=== PATIENT | female | born 1965 | race African-American/Black ===

== ENCOUNTER → 2016-03-20 | Day surgery (SDC) | payer MEDICARE, OTHER ==
[~2016-03-20] MED LIST: CALC0.25 PO; CALC667C PO; CEPH-460 PO; CETI5CHW CHEW; CIPR250T52 PO; CIPR500T2 PO; ERGO1CAP10 PO; FLUT1SPR5 EACH NARE; HYDR12.56 PO; KETOC2%T TOPICAL; LACTATED RINGER'S 1000 ML INJ 1,000 ML ONE; LEVO112T2 PO; LEVO75TA3 PO; LEVO88TA2 PO; PARO1TAB72 PO; PARO20TA2 PO; PAXI10TA2 PO; PROPOFOL 100 MG/10 ML INJ IV ONE; SODIUM CHLOR 0.9% 1000 ML BAG IV ONE; VALS1TAB70 PO
== END | disposition home or self-care (01) ==
LOC: ESDC 07:54
PROVIDERS: ATTEND Internal Medicine Gastroenterology
DX: K29.70 Gastritis, unspecified, without bleeding (principal); K29.80 Duodenitis without bleeding; K31.89 Other diseases of stomach and duodenum; K57.90 Diverticulosis of intestine, part unspecified, without perforation or abscess without bleeding
CPT/HCPCS: 00740; 00810; 43239; 45378; 88305; 88312; J3010; J7030; J7120

== ENCOUNTER 2016-07-01 17:47 | Emergency (ER) | payer MEDICARE, OTHER ==
[~2016-07-01] VITALS: Ht 170.2 cm; Wt 64.0 kg
[~2016-07-01 17:47] MED LIST changes: -CALC667C PO; -CEPH-460 PO; -CIPR250T52 PO; -CIPR500T2 PO; -FLUT1SPR5 EACH NARE; -LACTATED RINGER'S 1000 ML INJ 1,000 ML ONE; -LEVO112T2 PO; -LEVO88TA2 PO; -PARO1TAB72 PO; -PAXI10TA2 PO; -PROPOFOL 100 MG/10 ML INJ IV ONE; -SODIUM CHLOR 0.9% 1000 ML BAG IV ONE
[2016-07-01 17:48] VITALS: BP 127/69; PULSE 81; RESP 16; TEMP 98.8; O2SAT 99
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
[2016-07-01 18:28] LABS: BASOPHIL # 0.1 TH/MM3 (0-0.2); BASOPHIL % 0.7 % (0.0-2.0); EOSINOPHIL # 0.2 TH/MM3 (0-0.4); EOSINOPHIL % 2.1 % (0.0-4.0); HEMATOCRIT 38.4 % (35.0-46.0); HEMO FLAGS DIFF FINAL; LYMPH % 19.1 % (9.0-44.0); LYMPHOCYTE # 1.7 TH/MM3 (1.0-4.8); MEAN CELL VOLUME 80.5 FL (80.0-100.0); MEAN CORPUSCULAR HEMOGLOBIN 25.4 PG (27.0-34.0); MEAN CORPUSCULAR HGB CONC 31.5 % (32.0-36.0); MONO % 9.2 % (0.0-8.0); NEUT % 68.9 % (16.0-70.0); PLATELET COUNT 189 TH/MM3 (150-450); RED BLOOD COUNT 4.77 MIL/MM3 (4.00-5.30); RED CELL DISTRIBUTION WIDTH 13.7 % (11.6-17.2); WHITE BLOOD COUNT 8.7 TH/MM3 (4.0-11.0)
[2016-07-01 18:38] LABS: BACTERIA, URINE FEW /hpf; BLOOD, URINE LARGE (NEG); COMMENT (UR) CULTURE INDICATED; CULTURE IF INDICATED CULTURE INDICATED; GLUCOSE,URINE NEG (NEG); KETONE, URINE NEG (NEG); MUCUS URINE FEW /lpf (OCC); NITRITE,URINE NEG (NEG); SQUAMOUS EPITHELIAL CELL URINE 11 /hpf (0-5); URINE COLOR LIGHT-RED (YELLW/STRAW)
[2016-07-01 18:44] LABS: ANION GAP 12 MEQ/L (5-15); AST (GOT) 7 U/L (15-37); BICARBONATE 23.8 MEQ/L (21.0-32.0); BLOOD UREA NITROGEN 52 MG/DL (7-18); CHLORIDE 98 MEQ/L (98-107); GLOMERULAR FILTRATION RATE 6 ML/MIN (>89); POTASSIUM 3.7 MEQ/L (3.5-5.1); SODIUM (NA) 134 MEQ/L (136-145)
[2016-07-01 18:47] LABS: ALKALINE PHOSPHATASE 63 U/L (45-117); ALT (GPT) 21 U/L (10-53); TOTAL BILIRUBIN ADULT 0.2 MG/DL (0.2-1.0)
[2016-07-01] MEDS ORDERED: CALC0.25 PO (19:13)
[2016-07-01] MEDS ORDERED: CALC667C PO (19:13)
[2016-07-01] MEDS ORDERED: PARO1TAB72 PO (19:13)
[2016-07-01 19:14] VITALS: BP 132/77; PULSE 76; RESP 18; O2SAT 98
--- NOTE | 2016-07-01 19:20 | RADRPT ---
EXAM DATE/TIME: 07/01/2016 19:00 CORRECTION Corrected on: July 01, 2016; [facility] COMPARISON: CT ABDOMEN & PELVIS W/O CONTRAST, September 06, 2015, 18:06. INDICATIONS : Suprapubic pain and hematuria X 2 days. ORAL CONTRAST: No oral contrast ingested. RADIATION DOSE: 9.96 CTDIvol (mGy) MEDICAL HISTORY : Hypertension. Polycystic kidney disease SURGICAL HISTORY : Hysterectomy. Peritoneal dialysis catheter ENCOUNTER: Initial ACUITY: 2 days PAIN SCALE: 6/10 LOCATION: Abdomen/pelvis TECHNIQUE: Volumetric scanning of the abdomen and pelvis was performed. Using automated exposure control and adjustment of the mA and/or kV according to patient size, radiation dose was kept as low as reasonably achievable to obtain optimal diagnostic quality images. FINDINGS: Lung bases are clear. The patient has polycystic kidney disease with very large kidneys bilaterally. There are no hepatic cysts or pancreatic cysts evident. Some of these cysts are spontaneously dens e suggesting hemorrhage. Patient has a peritoneal dialysis catheter in place. Bladder appears grossly unremarkable. CONCLUSION: 1. Polycystic kidney disease. 2. Peritoneal dialysis catheter in place. 3. Etiology for the hematuria is not apparent. 4. Patient does have scattered apparent hemorrhagic cysts. There are small tiny areas of calcificat ion evident as well. Tyrone Guillen MD FACR on July 01, 2016 at 19:14 Board Certified Radiologist. This report was verified electronically. Tyrone Guillen MD FACR on July 01, 2016 at 21:25 Board Certified Radiologist. This report was verified electronically.
[2016-07-01 19:41] LABS: APTT (PATIENT) 28.5 SEC (24.3-30.1); INTERNATIONAL NORMALIZED RATIO 0.9 RATIO; PROTHROMBIN TIME - PATIENT 10.4 SEC (9.8-11.6)
[2016-07-01] MEDS ORDERED: CIPR500T2 PO (19:44)
[2016-07-05] MEDS ORDERED: CEPH-460 PO (12:19)
[2016-07-07] MEDS ORDERED: PARO1TAB72 PO (11:15)
[2016-07-18] MEDS ORDERED: CIPR250T52 PO (08:00)
== END 2016-07-01 19:58 | disposition home or self-care (01) ==
LOC: NEPD 17:47
DX: R58 Hemorrhage, not elsewhere classified (principal); N39.0 Urinary tract infection, site not specified; R31.0 Gross hematuria; Q61.3 Polycystic kidney, unspecified; I10 Essential (primary) hypertension; Z86.79 Personal history of other diseases of the circulatory system; Z87.39 Personal history of other diseases of the musculoskeletal system and connective tissue; Z87.448 Personal history of other diseases of urinary system
CPT/HCPCS: 74176; 80053; 81001; 84100; 85025; 85610; 85730; 87086; 99284

== ENCOUNTER 2016-12-27 16:23 | Emergency (ER) | payer MEDICARE, OTHER ==
[~2016-12-27] VITALS: Ht 170.2 cm; Wt 66.0 kg
[~2016-12-27 16:23] MED LIST changes: +CALC667C PO; -ERGO1CAP10 PO; -HYDR12.56 PO; -PARO20TA2 PO; +PARO20TA3 PO
[2016-12-27 16:25] VITALS: BP 120/68; PULSE 93; RESP 18; TEMP 98; O2SAT 99
[2016-12-27] MEDS ORDERED: SODIUM CHLORIDE 0.9% FLUSH 10 ML FLUSH IV FLUSH PRN (16:45)
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
[2016-12-27 17:25] VITALS: O2SAT 97
[2016-12-27] MEDS ORDERED: MORPHINE SULFATE 4 MG/ML INJ IV PUSH ONE (17:30)
[2016-12-27] MEDS ORDERED: ONDANSETRON HCL 4 MG/2 ML VIAL IV PUSH ONE (17:30)
[2016-12-27 17:32] LABS: AUTOMATED NEUTROPHIL # 8.3 TH/MM3 (1.8-7.7); BASOPHIL # 0.1 TH/MM3 (0-0.2); BASOPHIL % 0.6 % (0.0-2.0); EOSINOPHIL # 0.1 TH/MM3 (0-0.4); EOSINOPHIL % 1.3 % (0.0-4.0); HEMATOCRIT 38.3 % (35.0-46.0); HEMO FLAGS DIFF FINAL; LYMPH % 11.6 % (9.0-44.0); LYMPHOCYTE # 1.2 TH/MM3 (1.0-4.8); MEAN CELL VOLUME 81.5 FL (80.0-100.0); MEAN CORPUSCULAR HEMOGLOBIN 26.1 PG (27.0-34.0); MONO % 6.8 % (0.0-8.0); NEUT % 79.7 % (16.0-70.0); PLATELET COUNT 192 TH/MM3 (150-450); RED CELL DISTRIBUTION WIDTH 14.3 % (11.6-17.2); WHITE BLOOD COUNT 10.3 TH/MM3 (4.0-11.0)
[2016-12-27 17:35] LABS: BACTERIA, URINE RARE /hpf; BLOOD, URINE LARGE (NEG); COMMENT (UR) CULTURE INDICATED; CULTURE IF INDICATED CULTURE INDICATED; GLUCOSE,URINE NEG (NEG); KETONE, URINE NEG (NEG); NITRITE,URINE NEG (NEG); SQUAMOUS EPITHELIAL CELL URINE 4 /hpf (0-5); URINE COLOR LIGHT-YELLOW (YELLW/STRAW)
[2016-12-27 17:40] LABS: APTT (PATIENT) 34.5 SEC (24.3-30.1); PROTHROMBIN TIME - PATIENT 10.7 SEC (9.8-11.6)
[2016-12-27 17:48] LABS: ALT (GPT) 28 U/L (10-53); ANION GAP 11 MEQ/L (5-15); AST (GOT) 12 U/L (15-37); BICARBONATE 26.4 MEQ/L (21.0-32.0); BLOOD UREA NITROGEN 45 MG/DL (7-18); CHLORIDE 99 MEQ/L (98-107); GLOMERULAR FILTRATION RATE 6 ML/MIN (>89); POTASSIUM 3.6 MEQ/L (3.5-5.1); SODIUM (NA) 136 MEQ/L (136-145)
[2016-12-27 17:50] LABS: ALKALINE PHOSPHATASE 66 U/L (45-117); TOTAL BILIRUBIN ADULT 0.3 MG/DL (0.2-1.0)
--- NOTE | 2016-12-27 18:17 | RADRPT ---
EXAM DATE/TIME: 12/27/2016 17:59 [facility] COMPARISON: CT ABDOMEN & PELVIS W/O CONTRAST, July 01, 2016, 19:00. INDICATIONS : Left lower quadrant pain. ORAL CONTRAST: No oral contrast ingested. RADIATION DOSE: 7.45 CTDIvol (mGy) MEDICAL HISTORY : Hypertension. Diverticulitis. renal failure,dialysis patient,Polycystic kidney disease SURGICAL HISTORY : Hysterectomy. Peritoneal dialysis catheter ENCOUNTER: Initial ACUITY: 1 day PAIN SCALE: 8/10 LOCATION: Left lower quadrant TECHNIQUE: Volumetric scanning of the abdomen and pelvis was performed. Using automated exposure control and ad justment of the mA and/or kV according to patient size, radiation dose was kept as low as reasonably achievable to obtain optimal diagnostic quality images. DICOM format image data is available electro nically for review and comparison. FINDINGS: LOWER LUNGS: The visualized lower lungs are clear. LIVER: Several low density lesions in the right lobe, the largest of which is in the dome measuring 2.0 cm, characteristic of cysts, stable from prior CT. No calcified gallstones. SPLEEN: Normal size without lesion. PANCREAS: 1 cm round hypodense lesion in the junction of the body/tail of the pancreas, stable from prior. No pancreatic ductal dilatation. KIDNEYS: Symmetric marked enlargement of both kidneys measuring up to 22 cm in cranial/caudal dimension with t he parenchyma replaced by an numerous cysts characteristics of autosomal dominant polycystic kidney d isease. Several of the cysts are hyperdense and there are 2 small calcifications right overall appea juliette of the kidneys is unchanged from prior CT. No evidence of hydronephrosis. ADRENAL GLANDS: Within normal limits. VASCULAR: There is no aortic aneurysm. BOWEL/MESENTERY: Nondilated loops of small or large bowel. The appendix is identified in the right lower quadrant has a normal appearance. Multiple small sigmoid diverticula. CAPD catheter is coiled in the left pelvi s. No evidence of free fluid. ABDOMINAL WALL: Within normal limits. RETROPERITONEUM: There is no lymphadenopathy. BLADDER: No wall thickening or mass. REPRODUCTIVE: Within normal limits. INGUINAL: There is no lymphadenopathy or hernia. MUSCULOSKELETAL: Within normal limits for patient age. CONCLUSION: 1. No acute findings in the abdomen/pelvis. 2. Autosomal dominant polycystic kidney disease is stable when compared to prior CT. There are sever al presumed hemorrhagic cysts and associated cyst in the liver and pancreas. 3. Incidentally noted and partially included at the periphery of the field of view is a 1 cm smooth m argin mass in the right breast. Recommend further characterization with diagnostic mammography if a mammogram has not been performed recently. 4. CAPD catheter in place without significant fluid in the pelvis. Julio Taylor MD on December 27, 2016 at 18:08 Board Certified Radiologist. This report was verified electronically.
[2016-12-27] MEDS ORDERED: NITROFURANTOIN MONOHYD MACROCR 100 MG CAP PO ONE (18:30)
[2016-12-27] MEDS ORDERED: LEVA250T14 PO (18:39)
[2016-12-27] MEDS ORDERED: LEVOFLOXACIN 500 MG PREMIX INJ 100 ML IV ONE (18:45)
--- NOTE | 2016-12-27 18:46 | PD ---
Physical Exam Date Seen by Provider: Dec 27, 2016 Time Seen by Provider: 16:40 Narrative I, Dr. Balderas, have reviewed the advance practice practitioner's documentation and am in agreement, met with the patient face to face, made the diagnosis, and the medical decision making was done by me. *My assessment and Findings: Patient was seen and evaluated with PA, please see PA note for further details. She is on peritoneal dialysis with Dr. Alicia, apparently here with abdominal pain near the peritoneal dialysis site. She is mildly tender to palpation with no obvious drainage around the site or erythema around the site. Initial workup was done. Laboratory Tests Test 12/27/16 17:00 12/27/16 17:10 Mean Corpuscular Hemoglobin 26.1 PG (27.0-34.0) Neutrophils (%) (Auto) 79.7 % (16.0-70.0) Neutrophils # (Auto) 8.3 TH/MM3 (1.8-7.7) Activated Partial Thromboplast Time 34.5 SEC (24.3-30.1) Urine Turbidity HAZY (CLEAR) Urine Protein 30 mg/dL (NEG-TRACE) Urine Occult Blood LARGE (NEG) Urine Leukocyte Esterase LARGE (NEG) Urine WBC 9 /hpf (0-5) Urine Bacteria RARE /hpf (NONE) Blood Urea Nitrogen 45 MG/DL (7-18) Creatinine 8.87 MG/DL (0.50-1.00) Albumin 3.3 GM/DL (3.4-5.0) Aspartate Amino Transf (AST/SGOT) 12 U/L (15-37) Estimat Glomerular Filtration Rate 6 ML/MIN (>89) Last 24 hours Impressions Abdomen/Pelvis CT 12/27/16 0000 Signed Impressions: Service Date/Time: Tuesday, December 27, 2016 17:59 - CONCLUSION: 1. No acute findings in the abdomen/pelvis. 2. Autosomal dominant polycystic kidney disease is stable when compared to prior CT. There are several presumed hemorrhagic cysts and associated cyst in the liver and pancreas. 3. Incidentally noted and partially included at the periphery of the field of view is a 1 cm smooth margin mass in the right breast. Recommend further characterization with diagnostic mammography if a mammogram has not been performed recently. 4. CAPD catheter in place without significant fluid in the pelvis. Julio Taylor MD Lab work is significant for UTI. Her CAT scan did not show any signs of acute processes. Patient was given IV antibiotics for the UTI and the case was discussed with Dr. Alicia who states he will have her follow-up closely for cultures as well. He wanted me to give her Levaquin for UTI. Data Data Last Documented VS Vital Signs Date Time Temp Pulse Resp B/P (MAP) Pulse Ox O2 Delivery O2 Flow Rate FiO2 12/27/16 17:25 97 Room Air 12/27/16 16:25 98.0 93 18 Orders Orders Complete Blood Count With Diff (12/27/16 16:45) Comprehensive Metabolic Panel (12/27/16 16:45) Lipase (12/27/16 16:45) Lactic Acid (12/27/16 16:45) Prothrombin Time / Inr (Pt) (12/27/16 16:45) Act Partial Throm Time (Ptt) (12/27/16 16:45) Urinalysis - C+S If Indicated (12/27/16 16:45) Iv Access Insert/Monitor (12/27/16 16:45) Ecg Monitoring (12/27/16 16:45) Oximetry (12/27/16 16:45) Sodium Chloride 0.9% Flush (Ns Flush) (12/27/16 16:45) Ed Urine Pregnancytest Poc (12/27/16 16:45) Ct Abd/Pel W/O Iv Contrast (12/27/16 ) Ondansetron Inj (Zofran Inj) (12/27/16 17:30) Morphine Inj (Morphine Inj) (12/27/16 17:30) Peritoneal Cell Count + Diff (12/27/16 17:16) Glucose, Peritoneal Fluid (12/27/16 17:16) Urine Culture (12/27/16 17:00) Levofloxacin 500 Mg Premix Inj (Levaquin (12/27/16 18:45) Labs Laboratory Tests Test 12/27/16 17:00 12/27/16 17:10 White Blood Count 10.3 TH/MM3 Red Blood Count 4.70 MIL/MM3 Hemoglobin 12.3 GM/DL Hematocrit 38.3 % Mean Corpuscular Volume 81.5 FL Mean Corpuscular Hemoglobin 26.1 PG Mean Corpuscular Hemoglobin Concent 32.0 % Red Cell Distribution Width 14.3 % Platelet Count 192 TH/MM3 Mean Platelet Volume 8.9 FL Neutrophils (%) (Auto) 79.7 % Lymphocytes (%) (Auto) 11.6 % Monocytes (%) (Auto) 6.8 % Eosinophils (%) (Auto) 1.3 % Basophils (%) (Auto) 0.6 % Neutrophils # (Auto) 8.3 TH/MM3 Lymphocytes # (Auto) 1.2 TH/MM3 Monocytes # (Auto) 0.7 TH/MM3 Eosinophils # (Auto) 0.1 TH/MM3 Basophils # (Auto) 0.1 TH/MM3 CBC Comment DIFF FINAL Differential Comment Prothrombin Time 10.7 SEC Prothromb Time International Ratio 1.0 RATIO Activated Partial Thromboplast Time 34.5 SEC Urine Color LIGHT-YELLOW Urine Turbidity HAZY Urine pH 6.0 Urine Specific [place] 1.008 Urine Protein 30 mg/dL Urine Glucose (UA) NEG mg/dL Urine Ketones NEG mg/dL Urine Occult Blood LARGE Urine Nitrite NEG Urine Bilirubin NEG Urine Urobilinogen LESS THAN 2.0 MG/DL Urine Leukocyte Esterase LARGE Urine RBC 2 /hpf Urine WBC 9 /hpf Urine Squamous Epithelial Cells 4 /hpf Urine Amorphous Sediment RARE Urine Bacteria RARE /hpf Microscopic Urinalysis Comment CULTURE INDICATED Blood Urea Nitrogen 45 MG/DL Creatinine 8.87 MG/DL Random Glucose 86 MG/DL Total Protein 7.9 GM/DL Albumin 3.3 GM/DL Calcium Level 8.9 MG/DL Alkaline Phosphatase 66 U/L Aspartate Amino Transf (AST/SGOT) 12 U/L Alanine Aminotransferase (ALT/SGPT) 28 U/L Total Bilirubin 0.3 MG/DL Sodium Level 136 MEQ/L Potassium Level 3.6 MEQ/L Chloride Level 99 MEQ/L Carbon Dioxide Level 26.4 MEQ/L Anion Gap 11 MEQ/L Estimat Glomerular Filtration Rate 6 ML/MIN Lipase 150 U/L Lactic Acid Level 0.4 mmol/L [facility] Medical Record Reviewed: Yes Supervised Visit with DEEDEE: Yes Diagnosis Primary Impression: UTI (urinary tract infection) Additional Impression: End-stage renal disease on peritoneal dialysis Referrals: Sharmaine Alicia MD Med/Other Pt SpecificInfo: Prescription(s) given Scripts Levofloxacin (Levaquin) 250 Mg Tablet 250 MG PO q48 hours for Infection for 10 Days, TAB 0 Refills Prov: Caleb Balderas MD 12/27/16 Disposition: 01 DISCHARGE HOME Condition: Stable [place],Rewadee MD Dec 27, 2016 18:46
[2016-12-27] MEDS ORDERED: OXYC1TAB63 PO (18:58)
[2016-12-27 19:11] VITALS: BP 136/80; PULSE 87; RESP 18; TEMP 98.8; O2SAT 99
== END 2016-12-27 20:31 | disposition home or self-care (01) ==
LOC: NEPC 16:23
DX: N12 Tubulo-interstitial nephritis, not specified as acute or chronic (principal); N63.10 Unspecified lump in the right breast, unspecified quadrant; I10 Essential (primary) hypertension; Z99.2 Dependence on renal dialysis; Q61.2 Polycystic kidney, adult type
CPT/HCPCS: 74176; 80053; 81001; 83605; 83690; 84703; 85025; 85610; 85730; 87086; 96374; 96375; 99285; J1956; J2270; J2405